=== PATIENT | female | born 1945 | race Caucasian/White ===

== ENCOUNTER → 2017-02-14 | Outpatient (CLI) | payer MEDICARE, OTHER | LOC: MAMMO 15:08 | DX: Z12.31 Encounter for screening mammogram for malignant neoplasm of breast (principal) | CPT/HCPCS: G0202 ==

== ENCOUNTER 2018-01-31 10:30 | Outpatient (RCR) | payer MEDICARE, OTHER | END 2018-01-31 11:00 | disposition home or self-care (01) | LOC: PT 10:30 | DX: M54.16 Radiculopathy, lumbar region (principal) ==

== ENCOUNTER → 2018-05-21 | Outpatient (CLI) | payer MEDICARE, OTHER | LOC: MAMMO 13:30 | DX: Z12.31 Encounter for screening mammogram for malignant neoplasm of breast (principal) ==

== ENCOUNTER → 2019-07-16 | Outpatient (CLI) | payer MEDICARE, OTHER | LOC: MAMMO 12:52 | DX: Z12.31 Encounter for screening mammogram for malignant neoplasm of breast (principal) ==

== ENCOUNTER → 2019-07-16 | Outpatient (CLI) | payer MEDICARE, OTHER | LOC: RAD 12:53 → MAMMO 13:45 → RAD 13:45 | DX: Z13.820 Encounter for screening for osteoporosis (principal); Z78.0 Asymptomatic menopausal state ==

== ENCOUNTER 2019-11-27 10:30 | Outpatient (RCR) | payer MEDICARE, OTHER | END 2019-12-01 | disposition still patient (30) | LOC: PT | DX: M75.101 Unspecified rotator cuff tear or rupture of right shoulder, not specified as traumatic (principal) ==

== ENCOUNTER 2019-12-11 10:30 | Outpatient (RCR) | payer MEDICARE, OTHER | END 2019-12-11 11:00 | disposition still patient (30) | LOC: PT 10:30 | DX: M75.101 Unspecified rotator cuff tear or rupture of right shoulder, not specified as traumatic (principal) ==

== ENCOUNTER 2020-01-18 17:34 | Emergency (ER) | payer MEDICARE, OTHER ==
[~2020-01-18] VITALS: Wt 62.9 kg
[2020-01-18] MEDS ORDERED: OMEPRAZOLE40 MG PO (17:39)
[2020-01-18] MEDS ORDERED: PREMPRO 0.3 MG-1 TAB PO (17:39)
[2020-01-18] MEDS ORDERED: FLUOROMETHOLONE5 M1 OP (17:40)
[2020-01-18 18:36] LABS: HEMATOCRIT 33.9 % (37.0-47.0); HEMOGLOBIN 10.5 g/dL (12.5-16.0); MEAN CELL VOLUME 95 fl (78-100); MEAN CORPUSCULAR HEMOGLOBIN 30 pg (27-31); MEAN CORPUSCULAR HGB CONC 31 g/dL (33-37); MEAN PLATELET VOLUME 10.7 fl (7.4-10.4); PLATELET COUNT 237 K/mm3 (130-400); RED BLOOD COUNT 3.56 M/mm3 (4.10-5.30); RED CELL DISTRIBUTION WIDTH 16.7 % (11.5-14.5); WHITE BLOOD COUNT 17.9 K/mm3 (4.8-10.8)
[2020-01-18 18:42] LABS: LYMPHOCYTE 3 % (20-51); MONOCYTE 3 % (3-10); NEUTROPHILS 94 % (42-75)
[2020-01-18 18:45] LABS: ALBUMIN 3.7 g/dL (3.4-4.8); POTASSIUM 5.1 mmol/L (3.5-5.1)
[2020-01-18 18:46] LABS: CALCIUM 8.5 mg/dL (8.3-10.5)
[2020-01-18 18:47] LABS: TOTAL PROTEIN 6.2 g/dL (6.2-8.1)
[2020-01-18 18:49] LABS: TOTAL BILIRUBIN 0.5 mg/dL (0.2-1.2)
[2020-01-18 22:02] VITALS: BP 96/66
== END 2020-01-18 22:02 | disposition short-term general hospital (02) ==
LOC: ED 17:34
PROVIDERS: Family Medicine
DX: S36.039A Unspecified laceration of spleen, initial encounter (principal); K66.1 Hemoperitoneum; X58.XXXA Exposure to other specified factors, initial encounter
CPT/HCPCS: J3010; J7030; Q9967

== ENCOUNTER → 2020-02-11 | Outpatient (CLI) | payer MEDICARE, OTHER ==
[2020-01-18 22:02] VITALS: BP 96/66
[~2020-02-11] MED LIST: FLUOROMETHOLONE5 M1 OP; OMEPRAZOLE40 MG PO; PREMPRO 0.3 MG-1 TAB PO
[2020-02-11 13:36] LABS: HEMATOCRIT 29.3 % (37.0-47.0); HEMOGLOBIN 8.7 g/dL (12.5-16.0); MEAN PLATELET VOLUME 9.2 fl (7.4-10.4); RED BLOOD COUNT 2.93 M/mm3 (4.10-5.30); RED CELL DISTRIBUTION WIDTH 17.7 % (11.5-14.5); WHITE BLOOD COUNT 14.7 K/mm3 (4.8-10.8)
[2020-02-11 13:48] LABS: ALBUMIN 2.9 g/dL (3.4-4.8); POTASSIUM 3.9 mmol/L (3.5-5.1)
[2020-02-11 13:49] LABS: CALCIUM 7.8 mg/dL (8.3-10.5)
[2020-02-11 13:50] LABS: TOTAL PROTEIN 5.1 g/dL (6.2-8.1)
[2020-02-11 13:52] LABS: TOTAL BILIRUBIN 0.6 mg/dL (0.2-1.2)
== END ==
LOC: LAB 13:29
PROVIDERS: Family Medicine
DX: S36.032D Major laceration of spleen, subsequent encounter (principal); D62 Acute posthemorrhagic anemia; J18.9 Pneumonia, unspecified organism; K65.9 Peritonitis, unspecified

== ENCOUNTER 2020-02-13 17:19 | Emergency (ER) | payer MEDICARE, OTHER ==
[~2020-02-13] VITALS: Wt 59.1 kg
[~2020-02-13 17:19] MED LIST changes: -FLUOROMETHOLONE5 M1 OP; +FLUOROMETHOLONE5 M1 OS
[2020-02-13] MEDS ORDERED: VITAMIN B122500 MC1 (17:28)
[2020-02-13] MEDS ORDERED: ROSUVASTATIN CA10 MG PO (17:28)
[2020-02-13] MEDS ORDERED: TIZANIDINE2 MG PO (17:29)
[2020-02-13] MEDS ORDERED: XANAX0.25 M1 (17:30)
[2020-02-13 18:01] LABS: HEMATOCRIT 27.4 % (37.0-47.0); HEMOGLOBIN 8.2 g/dL (12.5-16.0); MEAN CELL VOLUME 100 fl (78-100); MEAN CORPUSCULAR HEMOGLOBIN 30 pg (27-31); MEAN CORPUSCULAR HGB CONC 30 g/dL (33-37); MEAN PLATELET VOLUME 8.8 fl (7.4-10.4); PLATELET COUNT 455 K/mm3 (130-400); RED BLOOD COUNT 2.75 M/mm3 (4.10-5.30); RED CELL DISTRIBUTION WIDTH 17.6 % (11.5-14.5); WHITE BLOOD COUNT 15.8 K/mm3 (4.8-10.8)
[2020-02-13 18:11] LABS: POTASSIUM 4.1 mmol/L (3.5-5.1)
[2020-02-13 18:33] LABS: HYPOCHROMIA 2+; LYMPHOCYTE 6 % (20-51); MONOCYTE 6 % (3-10); NEUTROPHILS 74 % (42-75)
[2020-02-13 19:02] LABS: D-DIMER 11.28 mg/L FEU (0.15-0.50)
[2020-02-13 21:12] VITALS: BP 115/64
== END 2020-02-13 20:27 | disposition home or self-care (01) ==
LOC: ED 17:19
PROVIDERS: Family Medicine
DX: M79.662 Pain in left lower leg (principal); E78.5 Hyperlipidemia, unspecified; Z90.710 Acquired absence of both cervix and uterus; Z90.89 Acquired absence of other organs
CPT/HCPCS: J1650

== ENCOUNTER → 2020-11-30 | Outpatient (CLI) | payer MEDICARE, OTHER ==
[~2020-11-30] MED LIST changes: +ROSUVASTATIN CA10 MG PO; +TIZANIDINE2 MG PO; +VITAMIN B122500 MC1; +XANAX0.25 M1
== END ==
LOC: MAMMO 11:19
DX: Z12.31 Encounter for screening mammogram for malignant neoplasm of breast (principal)

== ENCOUNTER → 2020-12-06 | Day surgery (SDC) | payer MEDICARE, OTHER | END | disposition home or self-care (01) | LOC: MSO 12:28 | DX: L72.0 Epidermal cyst (principal); G47.00 Insomnia, unspecified; E78.5 Hyperlipidemia, unspecified; K21.9 Gastro-esophageal reflux disease without esophagitis; Z79.899 Other long term (current) drug therapy; Z80.0 Family history of malignant neoplasm of digestive organs ==

== ENCOUNTER → 2022-02-13 | Outpatient (CLI) | payer MEDICARE, OTHER | LOC: RAD 02-10 11:00 → VAS 10:39 → RAD 11:00 | DX: R06.02 Shortness of breath (principal) ==

== ENCOUNTER → 2022-03-14 | Outpatient (CLI) | payer MEDICARE, OTHER | LOC: MAMMO 10:36 | DX: Z12.31 Encounter for screening mammogram for malignant neoplasm of breast (principal); N63.10 Unspecified lump in the right breast, unspecified quadrant; N63.20 Unspecified lump in the left breast, unspecified quadrant ==

== ENCOUNTER → 2022-03-23 | Outpatient (CLI) | payer MEDICARE, OTHER | LOC: RAD 12:33 | DX: N60.02 Solitary cyst of left breast (principal); N60.01 Solitary cyst of right breast ==

== ENCOUNTER 2023-07-16 01:09 | Emergency (ER) | payer MEDICARE, OTHER ==
[~2023-07-16] VITALS: Ht 162.6 cm; Wt 60.0 kg
[2023-07-16 01:42] LABS: BASO # 0.12 K/mm3 (0.02-0.10); EOS # 1.08 K/mm3 (0.04-0.40); HEMATOCRIT 38.6 % (37.0-47.0); HEMOGLOBIN 12.5 g/dL (12.5-16.0); LYMPH# 2.39 K/mm3 (1.50-4.00); MEAN CELL VOLUME 97 fl (78-100); MEAN CORPUSCULAR HEMOGLOBIN 31 pg (27-31); MEAN CORPUSCULAR HGB CONC 32 g/dL (33-37); MEAN PLATELET VOLUME 10.6 fl (7.4-10.4); MONO # 1.19 K/mm3 (0.20-0.80); NEU # 2.38 K/mm3 (1.40-6.50); PLATELET COUNT 330 K/mm3 (130-400); RED BLOOD COUNT 3.98 M/mm3 (4.10-5.30); RED CELL DISTRIBUTION WIDTH 18.4 % (11.5-14.5); WHITE BLOOD COUNT 7.2 K/mm3 (4.8-10.8)
[2023-07-16] MEDS ORDERED: NORVASC 10MG10 MG PO (01:48)
[2023-07-16 01:49] LABS: POTASSIUM 4.1 mmol/L (3.5-5.1); SODIUM 140 mmol/L (136-145)
[2023-07-16] MEDS ORDERED: BACLOFEN10 M1 PO (01:50)
[2023-07-16 01:51] LABS: CALCIUM 9.4 mg/dL (8.3-10.5)
[2023-07-16 01:52] LABS: GLUCOSE 90 mg/dL (65-105); TOTAL PROTEIN 7.2 g/dL (6.2-8.1)
[2023-07-16 01:53] LABS: CARBON DIOXIDE 20 mmol/L (23-31)
[2023-07-16 01:54] LABS: TOTAL BILIRUBIN 0.4 mg/dL (0.2-1.2)
[2023-07-16 01:57] LABS: AST-SGOT 15 U/L (5-34)
[2023-07-16 01:58] LABS: ALT/SGPT 10 U/L (0-55)
[2023-07-16 02:05] LABS: TROPONIN-I < 0.030 ng/mL (<0.030)
[2023-07-16 02:22] VITALS: BP 129/68
== END 2023-07-16 02:22 | disposition home or self-care (01) ==
LOC: ED 01:09
PROVIDERS: Physician Assistant
DX: M25.512 Pain in left shoulder (principal)

== ENCOUNTER → 2023-11-28 | Outpatient (CLI) | payer MEDICARE, OTHER ==
[~2023-11-28] MED LIST changes: +BACLOFEN10 M1 PO; +NORVASC 10MG10 MG PO
== END ==
LOC: MAMMO 10:28
DX: Z12.31 Encounter for screening mammogram for malignant neoplasm of breast (principal); N63.10 Unspecified lump in the right breast, unspecified quadrant

== ENCOUNTER → 2024-09-15 | Outpatient (CLI) | payer MEDICARE, OTHER | LOC: RAD 16:00 | DX: R05.9 Cough, unspecified (principal); R06.00 Dyspnea, unspecified; Z87.81 Personal history of (healed) traumatic fracture ==

== ENCOUNTER 2024-11-21 22:43 | Emergency (ER) | payer MEDICARE, OTHER ==
[2024-11-21 22:43] VITALS: BP 132/74
== END 2024-11-21 23:26 | disposition home or self-care (01) ==
LOC: ED 22:43
DX: S41.112A Laceration without foreign body of left upper arm, initial encounter (principal); W17.89XA Other fall from one level to another, initial encounter; Y92.812 Truck as the place of occurrence of the external cause